=== PATIENT | male | born 1950 | race Caucasian/White ===

== ENCOUNTER 2018-12-05 05:15 | Inpatient (IN) | payer MEDICARE, MEDICAID ==
[2018-12-05] VITALS (15 sets, daily range): BP systolic 116–141; BP diastolic 61–93
[~2018-12-05] VITALS: Ht 170.2 cm; Wt 81.6 kg
[~2018-12-05 05:15] MED LIST: CEPHALEXIN500 MG ORAL; CLARITIN-D 241 EACH PO; FLOMAX0.4 MG ORAL; GABAPENTIN600 MG ORAL; LAMICTAL100 MG ORAL; PRAMIPEXOLE D0.25 MG ORAL; PROBIOTIC1 EAC5 PO; PROSCAR5 MG ORAL; QUETIAPINE FUMA25 MG ORAL; [UNRECOGNIZED DRUG - OTHER] PO
--- NOTE | 2018-12-05 06:15 | NUR ---
PT HAD UTI AND HAS BEEN TAKING ORAL ANTIBIOTICS-HE SAID HAS 2 MORE DAYS OF ANTIBIOTICS TO TAKE.
[2018-12-05] MEDS ORDERED: Zemuron 50mg/5ml Inj IV ONE (06:58)
[2018-12-05] MEDS ORDERED: cefOXitin 1gm Inj ONE (06:58)
[2018-12-05] MEDS ORDERED: ceFAZolin sod 1 GM in NS 55 ML IVPB ONE (07:00)
[2018-12-05] MEDS ORDERED: fentaNYL 100 mcg/2 mL IV ONE (07:07)
[2018-12-05] MEDS ORDERED: Propofol 200mg/20ml IV ONE (07:08)
[2018-12-05] MEDS ORDERED: Midazolam 2mg/2ml Inj ONE (07:08)
[2018-12-05] MEDS ORDERED: Lidocaine 1% MPF 10mg/ml 5ml ONE (07:08)
[2018-12-05] MEDS ORDERED: Iothalamate Meglumine 60% 30ML INJ ONE ×3 (07:11→08:52)
[2018-12-05] MEDS ORDERED: LR 1000ml ONE (07:30)
[2018-12-05] MEDS ORDERED: Sterile Water For Irrig 2000ml IRRIG ONE ×2 (07:30→07:31)
[2018-12-05] MEDS ORDERED: NS Irrig 4000ml IRRIG ONE ×5 (07:30→09:39)
[2018-12-05] MEDS ORDERED: Sterile Water Irrig 1000ml IRRIG ONE (07:30)
--- NOTE | 2018-12-05 07:46 | Anethesia Preoperative Eval ---
Anesthesia Pre-op PMH/ROS General Date of Evaluation: December 05, 2018 Time of Evaluation: 07:42 Anesthesiologist: Ashwin ASA Score: ASA 2 Mallampati Score Class I : Soft palate, uvula, fauces, pillars visible Class II: Soft palate, uvula, fauces visible Class III: Soft palate, base of uvula visible Class IV: Only hard plate visible Mallampati Classification: Class II Surgeon: Guille Diagnosis: BPH Bladder stones Surgical Procedure: TURP laser lithotrypsy Anesthesia History: none Family History: no anesthesia problems Allergies: Coded Allergies: SULFA (SULFONAMIDE ANTIBIOTICS) (Verified Allergy, Intermediate, rash, face swells up, 12/04/18) Patient NPO?: Yes NPO Date: December 04, 2018 NPO Time: 233 Past Medical History Cardiovascular: Reports: HTN - borderline; Denies: CAD, OK, valve dz, arrhythmia, other Pulmonary: Denies: asthma, COPD, JESSE, other Gastrointestinal/Genitourinary: Reports: GERD, CRI, other - recent UTI; Denies: ESRD Neurologic/Psychiatric: Reports: other; Denies: dementia, CVA, depression/anxiety, TIA Endocrine: Denies: DM, hypothyroidism, steroids, other HEENT: Denies: cataract (L), cataract (R), glaucoma, CAHTO (L), CAHTO (R), other Hematology/Immune: Reports: anemia - mild; Denies: DVT, bleeding disorder, other Musculoskeletal/Integumentary: Denies: OA, RA, DJD, DDD, edema, other PMH Narrative: as above PSxH Narrative: T&A Rhinoplasty, cholecystectomy Anesthesia Pre-op Phys. Exam Physician Exam Last Vital Signs Date Time Temp Pulse Resp B/P (MAP) Pulse Ox O2 Delivery O2 Flow Rate FiO2 12/05/18 06:18 97.8 67 20 141/71 (94) 98 12/05/18 06:03 Room Air Constitutional: NAD Neurologic: CN 2-12 intact Cardiovascular: RRR, no M/R/G Respiratory: CTA Gastrointestinal: S/NT/ND Airway Exam Mallampati Score: Class II MO: full Neck: stiff ROM: limited Teeth: missing, broken Dentures: no upper, no lower Anesthesia Pre-op A/P Labs see chart Studies Pre-op Studies: EKG - NSR Risk Assessment & Plan Assessment: ASA 2 Plan: GA with LMA Status Change Before Surgery: No Pre-Antibiotics Drug: Cefoxetin 1gr. Given Within 1 Hr of Incision: Yes Time Given: 08:12 Dontae Christopher MD December 05, 2018 07:46
[2018-12-05] MEDS ORDERED: LR 1000ml 1,000 ML IVLG SCH (07:47)
--- NOTE | 2018-12-05 07:55 | Pre-Procedure Note/Attestation ---
Pre-Procedure Note/Attestation Complete Prior to Procedure Planned Procedure: not applicable Procedure Narrative: TURP with RIRS Left Laser stent placement Indications for Procedure Pre-Operative Diagnosis: left hydronephrosis with BPH Attestation I attest that I discussed the nature of the procedure; its benefits; risks and complications; and alternatives (and the risks and benefits of such alternatives ), prior to the procedure, with the patient (or the patient's legal retail field representative). I attest that, if there was a reasonable possibility of needing a blood transfusion, the patient (or the patient's legal retail field representative) was given the [facility] standardized written summary, pursuant to the [place] Blood Safety Act ([place] Health and Safety Code # 1645, as amended). I attest that I re-evaluated the patient just prior to the surgery and that there has been no change in the patient's H&P, except as documented below: Neftali Han MD December 05, 2018 07:55
[2018-12-05] MEDS ORDERED: DiphenhydrAMINE 50mg/ml Inj IVP PRN (08:00)
[2018-12-05] MEDS ORDERED: Hydromorphone 0.5mg/0.5ml inj IVP PRN (08:00)
--- NOTE | 2018-12-05 10:07 | Brief Operative Note ---
Immediate Post Operative Note Operative Note Pre-op Diagnosis: left hydronephrosis with BPH Procedure: rirs left with prg and stent placement, cystolopaxy and turp Post-op Diagnosis: same Post-op Diagnosis: same as pre-op Surgeon: Tony Han Anesthesia: general Specimen: yes Complications: none Condition: stable Fluids: 1000 Estimated Blood Loss: minimal Implant(s) used?: No Neftali Han MD December 05, 2018 10:07
[2018-12-05] MEDS ORDERED: HYDROmorphone 1mg/ml Carpuject IVP PRN (10:15)
[2018-12-05] MEDS ORDERED: HYDROcodone/Acetamin 10/325 tab ORAL PRN (10:15)
[2018-12-05] MEDS ORDERED: HYDROcodone/Acetamin 5/325 tab ORAL PRN (10:15)
--- NOTE | 2018-12-05 10:22 | Immediate Post-Op Evaluation ---
Immediate Post-Op Evalulation Immediate Post-Op Evalulation Procedure: Cysto retrograde pyelogram stent placement, TURP, laser lithotrypsy Date of Evaluation: December 05, 2018 Time of Evaluation: 10:21 IV Fluids: 1000 Blood Products: none Estimated Blood Loss: n/a Urinary Output: n/a Blood Pressure Systolic: 132 Blood Pressure Diastolic: 67 Pulse Rate: 65 Respiratory Rate: 20 O2 Sat by Pulse Oximetry: 98 Temperature (Fahrenheit): 97.6 Pain Score (1-10): 1 Nausea: No Vomiting: No Complications none Patient Status: reacts, patent, none Hydration Status: adequate Dontae Christopher MD December 05, 2018 10:22
[2018-12-05 11:15] LABS: ANION GAP 4 mmol/L (5-15); BLOOD UREA NITROGEN 26 mg/dL (7-18); CALCIUM 8.3 MG/DL (8.5-10.1); CARBON DIOXIDE 32 MMOL/L (21-32); CHLORIDE 104 MMOL/L (98-107); CREATININE 1.5 MG/DL (0.55-1.30); POTASSIUM 4.3 MMOL/L (3.5-5.1); SODIUM 140 MMOL/L (136-145)
[2018-12-05 11:23] LABS: BASOPHILS % (AUTO) 1.6 % (0.0-2.0); HEMATOCRIT 37.3 % (42.0-52.0); HEMOGLOBIN 12.8 G/DL (14.2-18.0); LYMPHOCYTES % (AUTO) 45.4 % (20.0-45.0); MEAN CORPUSCULAR VOLUME 85 FL (80-99); MONOCYTES % (AUTO) 5.9 % (1.0-10.0); NEUTROPHILS % (AUTO) 43.1 % (45.0-75.0); PLATELET COUNT 187 K/UL (150-450); RED BLOOD COUNT 4.37 M/UL (4.70-6.10); WHITE BLOOD COUNT 5.1 K/UL (4.8-10.8)
--- NOTE | 2018-12-05 11:48 | Diagnostic Imaging Report ---
INDICATION: Pain, intraoperative, bladder stones TECHNIQUE: Intraoperative imaging Fluoroscopy time: 76.4 seconds Total dose: 0.80587 mGym2 Total number of images: 8 COMPARISON: None FINDINGS: The left ureter is opacified. It is dilated. There is also dilatation of the left renal collecting system. Subsequent images demonstrate placement of a left nephroureteral stent IMPRESSION: Intraoperative imaging, as described
--- NOTE | 2018-12-05 12:30 | NUR ---
NURSE NOTES:RECEIVED PATIENT FR. PACU BY BED S/P TURP,WITH 2 PRONGS OF NS CBI,3WAY ROWELL,DRAINING REDDISH URINE.A/OX4,WITH 2 LITERS N/C,NO C/O PAIN,STATED HE FEELS BETTER.IV SITE PATENT,PLAN OF CARE DISCUSSED AND UNDERSTOOD.
[2018-12-05] MEDS: D5 1/2NS w/KCl 20mEq 1,000 ML IV SCH ×2 (13:20→21:20)
[2018-12-05] MEDS: ceFAZolin sod 2 GM in D5W 110 ML IV SCH ×2 (16:17→23:09)
[2018-12-05] MEDS: Docusate 100mg cap ORAL SCH ×2 (17:12→17:13)
--- NOTE | 2018-12-05 17:41 | NUR ---
NURSE NOTES:dr. johnson notified re:patient had large bm,and according to heber(pulling unit floorhand)it was black,did not actually see the stool,no c/o pain,except for sore throat,hgb/hct result relayed to md.orders carried out.
--- NOTE | 2018-12-05 17:48 | NUR ---
CASE MANAGEMENT:REVIEW 68 YR OLD MALE HERE FOR ELECTIVE SURGERY SI: LT HYDRONEPHROSIS W/BPH 97.8 67 20 141/71 98% ON RA H/H-12.8/37.3 BUN+26 CR+1.5 IS: TO SURGERY FOR: STENT PLACEMENT AND TURP IV ANCEF Q8HRS IVF@100/HR IV DILAUDID PRN : TO MED/SURG 3 EAST POST OP
[2018-12-05] MEDS: Chloraseptic Spray 20mL Bottle ORAL PRN ×2 (18:19→23:06)
--- NOTE | 2018-12-05 19:30 | NUR ---
NURSE NOTES:patient received from [facility].Patient A/A/OX4 Patient denies at this time . no sob/ no n/v noted . 2 prongs of NS . CBI in placed and draining to light pinkish no clots noted . 3way hernandez catheter. patient encourage to use IS patient tolerated well. Patient on scds bilateral lower ext. in placed . safety and fall Implemented . call light within reach . bed in low position . bed alarm active. will continue to monitor.
--- NOTE | 2018-12-05 23:03 | NUR ---
NURSE NOTES:Patient c/o sore throat Chloraseptic 1 spray given with good relief.call light within reach . bed in low position at all times . will continue to monitor .
[2018-12-06] VITALS: BP 147/71
[2018-12-06 04:00] VITALS: BP 146/65
[2018-12-06 04:15] VITALS: BP 140/68
[2018-12-06 06:28] LABS: BASOPHILS % (AUTO) 0.7 % (0.0-2.0); EOSINOPHILS % (AUTO) 2.1 % (0.0-3.0); HEMATOCRIT 41.6 % (42.0-52.0); HEMOGLOBIN 14.1 G/DL (14.2-18.0); LYMPHOCYTES % (AUTO) 29.8 % (20.0-45.0); MEAN CORPUSCULAR VOLUME 87 FL (80-99); MONOCYTES % (AUTO) 5.3 % (1.0-10.0); NEUTROPHILS % (AUTO) 62.2 % (45.0-75.0); PLATELET COUNT 206 K/UL (150-450); RED CELL DISTRIBUTION WIDTH 12.4 % (11.6-14.8); WHITE BLOOD COUNT 10.2 K/UL (4.8-10.8)
[2018-12-06 06:47] LABS: ANION GAP 6 mmol/L (5-15); BLOOD UREA NITROGEN 18 mg/dL (7-18); CARBON DIOXIDE 31 MMOL/L (21-32); CHLORIDE 103 MMOL/L (98-107); CREATININE 1.4 MG/DL (0.55-1.30); SODIUM 140 MMOL/L (136-145)
--- NOTE | 2018-12-06 07:20 | NUR ---
HAND-OFF: Report given to Marci Cody
--- NOTE | 2018-12-06 07:30 | NUR ---
NURSE NOTES: Received report from Rosibel BERMAN. Patient is awake alert and oriented x4, no acute distress noted. CBI running through [address] way hernandez per order, draining pink urine with some clots noted. IVF running per order, IV intact and asymptomatic. SCD's on. Patient reporting no pain at this time. Side rails upx3, bed low and locked, call light in reach. Will continue to monitor.
[2018-12-06 08:00] VITALS: BP 133/65
--- NOTE | 2018-12-06 08:35 | 48 Hour Post Anesthesia Eval ---
Post Anesthesia Evaluation Procedure: Cysto retrograde pyelogram stent placement, TURP, laser lithotrypsy Date of Evaluation: December 06, 2018 Airway: patent Nausea: No Vomiting: No Pain Intensity: 2 Hydration Status: adequate Cardiopulmonary Status: at baseline Mental Status/LOC: patient returned to baseline Post-Anesthesia Complications: 0 Follow-up care needed: N/A - further care as per primary team Roxana Ferrari MD December 06, 2018 08:35
[2018-12-06] MEDS: D5 1/2NS w/KCl 20mEq 1,000 ML IV SCH (09:30)
[2018-12-06] MEDS: Docusate 100mg cap ORAL SCH (09:31)
--- NOTE | 2018-12-06 09:40 | NUR ---
Patient seen for initial evaluation, see complete evaluation for details. Patient presents with impaired mobility and pain s/p surgical procedure. Patient will benefit from skilled inpatient PT intervention to address mobility and safety to return to prior level of function. Anticipate discharge home once medically cleared by MD. No DME needs identified at this time. Addendum: 12/06/18 at 1239 by ZEKE GALARZA PT Amended: Links added.
[2018-12-06 12:00] VITALS: BP 125/68
--- NOTE | 2018-12-06 12:00 | NUR ---
NURSE NOTES: Per Dr. Han ordered to discharge patient. gave orders for home medications. stated patient with have home health follow up with [facility].
--- NOTE | 2018-12-06 12:00 | NUR ---
NURSE NOTES: Hernandez catheter plugged and CBI discontinued per MD order. Attached leg bag and instructed patient how to put on leg bag and convert to night time drainage bag. Patient also instructed on hernandez catheter care. Patient reports understanding of provided education. Will continue to monitor.
[2018-12-06 16:00] VITALS: BP 145/72
[2018-12-06] MEDS ORDERED: NS Irrig 4000ml IRRIG ONE (17:54)
--- NOTE | 2018-12-06 18:05 | NUR ---
NURSE NOTES: Patient discharged. No acute distress on discharge. Patient provided with discharge supplies: leg bag and night time drainage bag. Instructed patient how to care for hernandez catheter and how to change out drainage bags. Patient reports understanding of education provided. Per Dr. Han, his office made arrangements for [facility] and nurse will be out to visit patient at home tomorrow. All education handouts reviewed with patient. IV removed intact. Leg bag draining dark pink urine, no clots noted. Patent escorted off unit to private vehicle by SPINDLE REPAIRER via wheelchair. IV removed intact.
--- NOTE | 2018-12-06 21:45 | Operative Note - Dictated ---
DATE OF OPERATION: 12/05/2018 PREOPERATIVE DIAGNOSES: 1. BPH. 2. Bladder stones. 3. Left hydronephrosis. POSTOPERATIVE DIAGNOSES: 1. BPH. 2. Bladder stones. 3. Left hydronephrosis. OPERATIONS: 1. Cystoscopy. 2. Retrograde pyelogram. 3. Retrograde intrarenal surgery with ureteral dilation. 4. Double-J stent placement. 5. Cystolitholapaxy of large bladder stones. 6. Transurethral resection of the prostate. OPERATED BY: Neftali Han M.D. ANESTHESIA: General. FINDINGS: As above. INDICATIONS FOR SURGERY: The patient presented with severe obstructive voiding symptoms and recurrent UTIs. Cystoscopy showed stones in the bladder and CT scan showed a markedly dilated left ureter and kidney. Treatment options were explained to him in great length including all potential complications. He signed a consent. DESCRIPTION OF SURGERY: He was brought to the operating room, placed in lithotomy position. Prepped and draped in standard fashion. Under general anesthesia, cystoscope was introduced. Catheter was placed into the left ureter and retrograde pyelogram was performed showing dilation of distal and proximal ureter all the way to the left kidney. The ureteroscope was introduced and carried all the way to the kidney with some dilation of the proximal ureter without any evidence of lesions in the ureter. Double-J stent, 26-Polish was placed and left indwelling. Using 1000 micron fibers, stone was fragmented in the bladder into small pieces and removed with the Chantale evacuator. After that, transurethral section of the prostate was performed in the standard fashion. Verumontanum was carefully preserved. Fulguration of the prostate bed. All the chips and stones were evacuated. A 24 three-way Hager catheter was placed . Sponge count and instrument count was correct. Neftali Han M.D. DR: TREASURE JOB#: [id number] CC:
--- NOTE | 2018-12-07 13:01 | Discharge Summary ---
Discharge Summary Hospital Course Date of Admission December 05, 2018 at 05:15 Date of Discharge December 06, 2018 at 17:55 Admitting Diagnosis BPH, bladder, stones , hydronephrosis Reason for Hospitalization: elective surgery PAULA Kumari is a 68 year old male who was admitted on December 05, 2018 at 05:15 for Enlarged Prostate, Bladder Stones, Hydronephrosis Procedures s/p 12/05/[address] Han 1. Cystoscopy. 2. Retrograde pyelogram. 3. Retrograde intrarenal surgery with ureteral dilation. 4. Double-J stent placement. 5. Cystolitholapaxy of large bladder stones. 6. Transurethral resection of the prostate. Hospital Course status post surgery course of recovery uneventful initially IV fluids 3 way continuous bladder irrigation urine pink, initially few clots, manually irrigated, urine cleared s/p perioperative antibiotics neurovascular status closely monitored, stable pain management addressed, and pain controlled hemodynamically stable ambulated with PT DVT prophylaxis with SCD provided use of incentive spirometry was encouraged while in the bed fall precautions maintained; safe for ambulation tolerated diet , IV fluids discontinued GI prophylaxis provided antiemetics were on board as needed bowel regimen instituted patient was stable for discharge Hager catheter was plugged continuous bladder irrigation was discontinued leg bag attached patient was instructed how to put leg bag and how to at night to attach drainage bag patient was instructed on Hager catheter care. patient will be follow-up with home health services discharge instructions provided follow up with surgeon as outpatient as advised by surgeon FINAL DIAGNOSES 1. BPH. 2. Bladder stones. 3. Left hydronephrosis. 4. s/p Cystoscopy, retrograde pyelogram, stent placement, TURP, laser lithotripsy Discharge Medications Continued Medications: Aromatic Cascara Fluid Extract (Cascara [place]) 1 Ml Fl.extract 4 CAP PO HS, ML (This prescription has been renewed) Cephalexin* (Keflex*) 500 Mg Capsule 500 MG ORAL EVERY 6 HOURS, CAP (This prescription has been renewed) Gabapentin* (Gabapentin*) 600 Mg Tablet 600 MG ORAL THREE TIMES A DAY, TAB (This prescription has been renewed) Lactobacillus Combo No.11 (Probiotic) 1 Each Cap.sprink 1 EACH PO BID, CAP (This prescription has been renewed) Lamotrigine* (Lamictal*) 100 Mg Tablet 200 MG ORAL HS, #30 TAB 0 Refills (This prescription has been renewed) Loratadine/Pseudoephedrine (Claritin-D 24 Hour Tablet) 1 Each Tab.er.24h 1 TAB PO PRN, TAB (This prescription has been renewed) Pramipexole* (Mirapex*) 0.25 Mg Tablet 0.5 MG ORAL DAILY PRN for For Pain, TAB (This prescription has been renewed) Quetiapine Fumarate* (Seroquel*) 25 Mg Tablet 75 MG ORAL HS, TAB (This prescription has been renewed) Discontinued Medications: Finasteride* (Proscar*) 5 Mg Tablet 5 MG ORAL DAILY, #30 TAB 0 Refills Tamsulosin HCl (Flomax) 0.4 Mg Cap.er.24h 0.4 MG ORAL DAILY, CAP Discharge Condition Upon Discharge: stable Discharge Disposition Patient was discharged home Discharge Instructions Discharge Instructions Special Instructions I have been assigned to complete a D/C Summary on this account. I was not involved in the patient management iMkaela Gutiérrez NP December 07, 2018 13:01
== END 2018-12-06 17:55 | disposition home health service (06) | DRG 713 ==
LOC: SDSOVERFLO 05:15 → 3E 11:01
PROC: 0T778DZ Dilation of Left Ureter with Intraluminal Device, Via Natural or Artificial Opening Endoscopic (ICD-10-PCS; principal; 2018-12-05 07:30)
PROC: 0VT08ZZ Resection of Prostate, Via Natural or Artificial Opening Endoscopic (ICD-10-PCS; principal; 2018-12-05 07:30)
PROC: 0TCB8ZZ Extirpation of Matter from Bladder, Via Natural or Artificial Opening Endoscopic (ICD-10-PCS; principal; 2018-12-05 07:30)
PROC: BT1FZZZ Fluoroscopy of Left Kidney, Ureter and Bladder (ICD-10-PCS; principal; 2018-12-05 07:30)
DX: N40.1 Benign prostatic hyperplasia with lower urinary tract symptoms (principal); N13.8 Other obstructive and reflux uropathy; F31.30 Bipolar disorder, current episode depressed, mild or moderate severity, unspecified; N13.1 Hydronephrosis with ureteral stricture, not elsewhere classified; N21.0 Calculus in bladder; N39.498 Other specified urinary incontinence; G47.30 Sleep apnea, unspecified; K57.90 Diverticulosis of intestine, part unspecified, without perforation or abscess without bleeding; Z88.2 Allergy status to sulfonamides; B35.4 Tinea corporis; F43.12 Post-traumatic stress disorder, chronic; K21.0 Gastro-esophageal reflux disease with esophagitis
CPT/HCPCS: 36415; 74420; 76000; 80048; 85025; 86850; 86900; 86901; 87081; 94003; 94150; J2250; J2405